=== PATIENT | female | born 1985 | race Caucasian/White ===

== ENCOUNTER → 2016-10-06 | Outpatient (CLI) | payer OTHER ==
[~2016-10-06] MED LIST: PRENTAB26 PO
== END | disposition home or self-care (01) ==
LOC: C.LABBC 18:00
PROVIDERS: ATTEND Internal Medicine Geriatric Medicine
DX: B82.9 Intestinal parasitism, unspecified (principal)

== ENCOUNTER → 2017-03-27 | Outpatient (CLI) | payer OTHER ==
[2017-03-27 15:05] LABS: URINE APPEARANCE CLEAR (CLEAR); URINE BILIRUBIN NEG (NEG); URINE COLOR YELLOW; URINE EPITHELIAL CELL AUTO 20-30 /lpf (0-5); URINE NITRITE NEG (NEG); URINE SPECIFIC GRAVITY 1.015 (1.000-1.030); UROBILINOGEN NEG (NEG)
[2017-03-27 15:07] LABS: MANUAL MICROSCOPIC REQUIRED? NO; REVIEW REQ? NO
== END | disposition home or self-care (01) ==
LOC: C.LABSPEC 14:13
PROVIDERS: ATTEND Obstetrics & Gynecology
DX: O09.219 Supervision of pregnancy with history of pre-term labor, unspecified trimester (principal); Z3A.00 Weeks of gestation of pregnancy not specified

== ENCOUNTER → 2017-04-10 | Outpatient (CLI) | payer OTHER ==
[2017-04-10 08:01] LABS: PATIENT HEIGHT 162.6 cm
[2017-04-10 11:34] LABS: URINE TOTAL PROTEIN 22.6 mg/dl (0-11.9)
[2017-04-10 12:55] LABS: CREATININE 0.53 mg/dl (0.6-1.2); URINE TOTAL PROTEIN CALC 472.3 mg/24 hr (0-149.1)
== END | disposition home or self-care (01) ==
LOC: C.LABBC 07:50
PROVIDERS: ATTEND Obstetrics & Gynecology
DX: I10 Essential (primary) hypertension (principal)

== ENCOUNTER → 2017-05-01 | Outpatient (CLI) | payer OTHER ==
[2017-05-01 08:05] LABS: PATIENT HEIGHT 162.6 cm
--- NOTE | 2017-05-01 08:10 | DIAGNOSTIC IMAGING REPORT ---
(RENAL)RETROPERITON COMP CLINICAL HISTORY: 31 years-old Female presenting with DIABETES HYPERTENSION PROTEINURIA. TECHNIQUE: Real-time grayscale and limited color Doppler ultrasound imaging of the kidneys and bladder was performed. COMPARISON: None. FINDINGS: Right kidney: Normal echogenicity. Right kidney measures 12.2 cm. No hydronephrosis. 7 mm hyperechogenic shadowing focus in the midpole consistent with calculus. Normal perfusion. Left kidney: Normal echogenicity. Left kidney measures 12.6 cm. No hydronephrosis. 3 mm hyperechogenic shadowing focus consistent with calculus at the lower pole. Normal perfusion. Bladder: No bladder wall thickening. Bilateral ureteral jets present. Other: None. IMPRESSION: 1. Bilateral nonobstructing renal calculi. No hydronephrosis. Electronically signed by: Anatoly Lieberman M.D. 05/01/2017 8:08 AM Dictated Date/Time: 05/01/2017 8:07 AM
[2017-05-01 11:31] LABS: BASO % 0.3 %; BASO ABS # 0.02 K/uL (0-0.2); COMPLETE YES; EOS % 1.3 %; HEMATOCRIT 36.6 % (37-47); IG% 0.5 %; LYMPH % 23.2 %; LYMPH ABS # 1.74 K/uL (1.2-3.4); MEAN CELL VOLUME 84.5 fL (80-100); MEAN CORPUSCULAR HEMOGLOBIN 28.4 pg (25-34); MEAN CORPUSCULAR HGB CONC 33.6 g/dl (32-36); MEAN PLATELET VOLUME 9.3 fL (7.4-10.4); MONO % 6.4 %; NEUT % 68.3 %; PLATELET COUNT 308 K/uL (130-400); RED BLOOD COUNT 4.33 M/uL (4.2-5.4)
[2017-05-01 11:47] LABS: URINE APPEARANCE CLEAR (CLEAR); URINE BILIRUBIN NEG (NEG); URINE COLOR YELLOW; URINE EPITHELIAL CELL AUTO 0-5 /lpf (0-5); URINE NITRITE NEG (NEG); URINE SPECIFIC GRAVITY 1.013 (1.000-1.030); UROBILINOGEN NEG (NEG)
[2017-05-01 11:51] LABS: MANUAL MICROSCOPIC REQUIRED? NO; REVIEW REQ? NO
[2017-05-01 11:59] LABS: URINE TOTAL PROTEIN 9.2 mg/dl (0-11.9); URINE TOTAL PROTEIN < 5.0 mg/dl (0-11.9)
[2017-05-01 12:00] LABS: CALCIUM 8.7 mg/dl (8.5-10.1); CREATININE 0.57 mg/dl (0.60-1.20); POTASSIUM 3.7 mmol/L (3.5-5.1); URIC ACID 3.8 mg/dl (2.6-7.2)
[2017-05-01 12:10] LABS: ALB/GLOB RATIO 0.9 (0.9-2); THYROID STIMULATING HORMONE 0.621 uIu/ml (0.300-4.500)
[2017-05-01 12:19] LABS: CREATININE 0.57 mg/dl (0.6-1.2); URINE TOTAL PROTEIN CALC 223.6 mg/24 hr (0-149.1)
== END | disposition home or self-care (01) ==
LOC: C.ULTRBC 07:19
PROVIDERS: ATTEND Internal Medicine Nephrology
DX: E04.2 Nontoxic multinodular goiter (principal); I10 Essential (primary) hypertension; R80.9 Proteinuria, unspecified; E11.9 Type 2 diabetes mellitus without complications

== ENCOUNTER → 2017-08-28 | Outpatient (CLI) | payer OTHER ==
[2017-08-28 08:32] LABS: PATIENT HEIGHT 162.6 cm
[2017-08-28 11:39] LABS: CREATININE 0.43 mg/dl (0.6-1.2)
[2017-08-28 12:03] LABS: CREATININE, URINE 36.5 mg/dl; URINE TOTAL PROTEIN 11.7 mg/dl (0-11.9)
== END | disposition home or self-care (01) ==
LOC: C.LABBC 08:12
PROVIDERS: ATTEND Obstetrics & Gynecology
DX: O10.919 Unspecified pre-existing hypertension complicating pregnancy, unspecified trimester (principal)

== ENCOUNTER → 2017-09-04 | Outpatient (CLI) | payer OTHER ==
[2017-09-04 11:19] LABS: BASO % 0.2 %; BASO ABS # 0.02 K/uL (0-0.2); COMPLETE YES; EOS % 1.6 %; HEMATOCRIT 33.1 % (37-47); IG% 0.8 %; LYMPH % 18.9 %; LYMPH ABS # 1.56 K/uL (1.2-3.4); MEAN CELL VOLUME 86.4 fL (80-100); MEAN CORPUSCULAR HEMOGLOBIN 28.2 pg (25-34); MEAN CORPUSCULAR HGB CONC 32.6 g/dl (32-36); MEAN PLATELET VOLUME 9.3 fL (7.4-10.4); MONO % 4.7 %; NEUT % 73.8 %; PLATELET COUNT 282 K/uL (130-400); RED BLOOD COUNT 3.83 M/uL (4.2-5.4); WHITE BLOOD COUNT 8.26 K/uL (4.8-10.8)
[2017-09-04 11:43] LABS: ALT/SGPT 30 U/L (12-78); AST/SGOT 17 U/L (15-37); CREATININE 0.47 mg/dl (0.60-1.20)
[2017-09-04 11:47] LABS: URIC ACID 3.9 mg/dl (2.6-7.2)
== END | disposition home or self-care (01) ==
LOC: C.LABBC 08:08
PROVIDERS: ATTEND Obstetrics & Gynecology
DX: O10.919 Unspecified pre-existing hypertension complicating pregnancy, unspecified trimester (principal)

== ENCOUNTER → 2017-09-11 | Outpatient (CLI) | payer OTHER ==
[2017-09-11 11:04] LABS: HEMATOCRIT 32.6 % (37-47); MEAN CELL VOLUME 86.5 fL (80-100); MEAN CORPUSCULAR HEMOGLOBIN 28.6 pg (25-34); MEAN CORPUSCULAR HGB CONC 33.1 g/dl (32-36); MEAN PLATELET VOLUME 9.5 fL (7.4-10.4); PLATELET COUNT 277 K/uL (130-400); RED BLOOD COUNT 3.77 M/uL (4.2-5.4); WHITE BLOOD COUNT 8.09 K/uL (4.8-10.8)
[2017-09-11 11:11] LABS: ALKALINE PHOSPHATASE 71 U/L (45-117); ALT/SGPT 23 U/L (12-78); AST/SGOT 16 U/L (15-37)
== END | disposition home or self-care (01) ==
LOC: C.LABBC 07:52
PROVIDERS: ATTEND Obstetrics & Gynecology
DX: O10.919 Unspecified pre-existing hypertension complicating pregnancy, unspecified trimester (principal)

== ENCOUNTER → 2017-09-18 | Outpatient (CLI) | payer OTHER ==
[2017-09-18 10:54] LABS: BASO % 0.1 %; BASO ABS # 0.01 K/uL (0-0.2); COMPLETE YES; EOS % 1.9 %; HEMATOCRIT 30.8 % (37-47); IG% 1.1 %; LYMPH % 21.8 %; LYMPH ABS # 1.86 K/uL (1.2-3.4); MEAN CELL VOLUME 85.6 fL (80-100); MEAN CORPUSCULAR HEMOGLOBIN 29.2 pg (25-34); MEAN CORPUSCULAR HGB CONC 34.1 g/dl (32-36); MEAN PLATELET VOLUME 9.4 fL (7.4-10.4); MONO % 8.1 %; PLATELET COUNT 250 K/uL (130-400); WHITE BLOOD COUNT 8.53 K/uL (4.8-10.8)
[2017-09-18 11:15] LABS: ALT/SGPT 24 U/L (12-78); AST/SGOT 17 U/L (15-37); BLOOD UREA NITROGEN 5 mg/dl (7-18); BUN/CREATININE RATIO 12.6 (10-20); CALCIUM 8.1 mg/dl (8.5-10.1); CARBON DIOXIDE 27 mmol/L (21-32); CHLORIDE 106 mmol/L (98-107); CREATININE 0.43 mg/dl (0.60-1.20); GLUCOSE 78 mg/dl (70-99); SODIUM 137 mmol/L (136-145)
[2017-09-18 11:18] LABS: ALB/GLOB RATIO 0.7 (0.9-2); ALKALINE PHOSPHATASE 75 U/L (45-117)
== END | disposition home or self-care (01) ==
LOC: C.LAB1850 08:01
PROVIDERS: ATTEND Obstetrics & Gynecology
DX: O10.919 Unspecified pre-existing hypertension complicating pregnancy, unspecified trimester (principal); Z3A.00 Weeks of gestation of pregnancy not specified

== ENCOUNTER → 2017-09-26 | Outpatient (CLI) | payer OTHER ==
[2017-09-26 09:55] LABS: HEMATOCRIT 31.3 % (37-47); MEAN CELL VOLUME 85.5 fL (80-100); MEAN CORPUSCULAR HEMOGLOBIN 29.2 pg (25-34); MEAN CORPUSCULAR HGB CONC 34.2 g/dl (32-36); RED BLOOD COUNT 3.66 M/uL (4.2-5.4); WHITE BLOOD COUNT 7.31 K/uL (4.8-10.8)
[2017-09-26 09:56] LABS: MEAN PLATELET VOLUME 9.4 fL (7.4-10.4); PLATELET COUNT 254 K/uL (130-400)
[2017-09-26 10:19] LABS: ALT/SGPT 37 U/L (12-78); AST/SGOT 25 U/L (15-37); BLOOD UREA NITROGEN 5 mg/dl (7-18); BUN/CREATININE RATIO 12.9 (10-20); CALCIUM 8.2 mg/dl (8.5-10.1); CARBON DIOXIDE 25 mmol/L (21-32); CHLORIDE 107 mmol/L (98-107); CREATININE 0.41 mg/dl (0.60-1.20); GLUCOSE 75 mg/dl (70-99); SODIUM 138 mmol/L (136-145)
[2017-09-26 10:22] LABS: ALB/GLOB RATIO 0.7 (0.9-2); ALKALINE PHOSPHATASE 93 U/L (45-117)
== END | disposition home or self-care (01) ==
LOC: C.LAB1850 08:09
PROVIDERS: ATTEND Obstetrics & Gynecology
DX: O10.919 Unspecified pre-existing hypertension complicating pregnancy, unspecified trimester (principal); Z3A.00 Weeks of gestation of pregnancy not specified

== ENCOUNTER → 2017-10-03 | Outpatient (CLI) | payer OTHER ==
[2017-10-03 09:32] LABS: HEMATOCRIT 32.5 % (37-47); HEMOGLOBIN 11.1 g/dL (12.0-16.0); MEAN CELL VOLUME 85.3 fL (80-100); MEAN CORPUSCULAR HEMOGLOBIN 29.1 pg (25-34); MEAN CORPUSCULAR HGB CONC 34.2 g/dl (32-36); MEAN PLATELET VOLUME 9.5 fL (7.4-10.4); PLATELET COUNT 260 K/uL (130-400); RED CELL DISTRIBUTION WIDTH CV 15.1 % (11.5-14.5); RED CELL DISTRIBUTION WIDTH SD 46.7 fL (36.4-46.3); WHITE BLOOD COUNT 8.69 K/uL (4.8-10.8)
[2017-10-03 10:07] LABS: ALBUMIN 2.6 gm/dl (3.4-5.0); ALKALINE PHOSPHATASE 106 U/L (45-117); ALT/SGPT 28 U/L (12-78); AST/SGOT 20 U/L (15-37); TOTAL PROTEIN 6.2 gm/dl (6.4-8.2)
== END | disposition home or self-care (01) ==
LOC: C.LAB1850 08:49
PROVIDERS: ATTEND Obstetrics & Gynecology
DX: O10.919 Unspecified pre-existing hypertension complicating pregnancy, unspecified trimester (principal)

== ENCOUNTER → 2017-10-09 | Outpatient (CLI) | payer OTHER ==
[2017-10-09 11:03] LABS: BASO % 0.2 %; BASO ABS # 0.02 K/uL (0-0.2); EOS % 1.4 %; EOS ABS # 0.12 K/uL (0-0.5); HEMATOCRIT 32.3 % (37-47); HEMOGLOBIN 10.8 g/dL (12.0-16.0); IG# 0.05 K/uL (0.00-0.02); LYMPH % 21.2 %; LYMPH ABS # 1.82 K/uL (1.2-3.4); MEAN CELL VOLUME 85.9 fL (80-100); MEAN CORPUSCULAR HEMOGLOBIN 28.7 pg (25-34); MEAN CORPUSCULAR HGB CONC 33.4 g/dl (32-36); MEAN PLATELET VOLUME 9.6 fL (7.4-10.4); MONO % 7.9 %; MONO ABS # 0.68 K/uL (0.11-0.59); NEUT % 68.7 %; NEUT ABS # 5.91 K/uL (1.4-6.5); PLATELET COUNT 273 K/uL (130-400); RED CELL DISTRIBUTION WIDTH SD 46.8 fL (36.4-46.3)
[2017-10-09 11:25] LABS: ALBUMIN 2.5 gm/dl (3.4-5.0); ALKALINE PHOSPHATASE 107 U/L (45-117); ALT/SGPT 22 U/L (12-78); AST/SGOT 18 U/L (15-37)
== END | disposition home or self-care (01) ==
LOC: C.LABBC 08:22
PROVIDERS: ATTEND Obstetrics & Gynecology
DX: O10.919 Unspecified pre-existing hypertension complicating pregnancy, unspecified trimester (principal)

== ENCOUNTER → 2017-10-11 | Outpatient (CLI) | payer OTHER | END | disposition home or self-care (01) | LOC: C.LABSPEC 11:08 | PROVIDERS: ATTEND Obstetrics & Gynecology | DX: O24.410 Gestational diabetes mellitus in pregnancy, diet controlled (principal); Z3A.00 Weeks of gestation of pregnancy not specified ==

== ENCOUNTER → 2017-10-12 | Outpatient (CLI) | payer OTHER ==
[2017-10-12 16:57] LABS: BASO % 0.2 %; BASO ABS # 0.02 K/uL (0-0.2); EOS % 0.8 %; EOS ABS # 0.07 K/uL (0-0.5); HEMATOCRIT 33.1 % (37-47); HEMOGLOBIN 11.2 g/dL (12.0-16.0); IG# 0.06 K/uL (0.00-0.02); LYMPH % 20.9 %; LYMPH ABS # 1.76 K/uL (1.2-3.4); MEAN CELL VOLUME 86.2 fL (80-100); MEAN CORPUSCULAR HEMOGLOBIN 29.2 pg (25-34); MEAN CORPUSCULAR HGB CONC 33.8 g/dl (32-36); MEAN PLATELET VOLUME 9.7 fL (7.4-10.4); MONO % 8.3 %; NEUT % 69.1 %; NEUT ABS # 5.81 K/uL (1.4-6.5); PLATELET COUNT 286 K/uL (130-400); RED CELL DISTRIBUTION WIDTH CV 15.1 % (11.5-14.5); RED CELL DISTRIBUTION WIDTH SD 47.4 fL (36.4-46.3); WHITE BLOOD COUNT 8.42 K/uL (4.8-10.8)
[2017-10-12 17:23] LABS: ALT/SGPT 21 U/L (12-78); AST/SGOT 15 U/L (15-37); CREATININE 0.42 mg/dl (0.60-1.20); URIC ACID 4.2 mg/dl (2.6-7.2)
== END ==
LOC: C.LABBC 14:24
PROVIDERS: ATTEND Obstetrics & Gynecology
DX: O14.00 Mild to moderate pre-eclampsia, unspecified trimester (principal); O10.919 Unspecified pre-existing hypertension complicating pregnancy, unspecified trimester; Z3A.00 Weeks of gestation of pregnancy not specified

== ENCOUNTER 2017-10-13 08:28 | Inpatient (IN) | payer OTHER ==
[~2017-10-13] VITALS: Ht 162.6 cm; Wt 88.2 kg
[2017-10-13] MEDS ORDERED: LACTATED RINGER'S 1000ML 1,000 ML IV SCH ×2 (09:36→09:41)
[2017-10-13] MEDS ORDERED: LACTATED RINGER'S 1000ML 1,000 ML IV PRN ×2 (09:36→09:41)
[2017-10-13] MEDS ORDERED: LACTATED RINGER'S 1000ML 500 ML IV PRN (09:41)
[2017-10-13] MEDS ORDERED: OXYTOCIN 30 UNITS/500ML NSS IV PRN ×2 (09:45→19:00)
[2017-10-13] MEDS ORDERED: PENICILLIN G POTASSIUM IV 6 MU in DEXTROSE 5% 250ML 250 ML IV ONE (09:45)
[2017-10-13 10:28] LABS: HEMATOCRIT 33.3 % (37-47); HEMOGLOBIN 11.4 g/dL (12.0-16.0); MEAN CELL VOLUME 84.9 fL (80-100); MEAN CORPUSCULAR HEMOGLOBIN 29.1 pg (25-34); MEAN CORPUSCULAR HGB CONC 34.2 g/dl (32-36); MEAN PLATELET VOLUME 9.6 fL (7.4-10.4); PLATELET COUNT 258 K/uL (130-400); WHITE BLOOD COUNT 8.96 K/uL (4.8-10.8)
[2017-10-13 10:47] LABS: AST/SGOT 17 U/L (15-37); CREATININE 0.44 mg/dl (0.60-1.20)
[2017-10-13 11:37] VITALS: Ht 162.6 cm; Wt 88.2 kg
[2017-10-13] MEDS ORDERED: PENICILLIN G POTASSIUM IV 3 MU in DEXTROSE 5% 100ML 100 ML IV PRN (13:45)
[2017-10-13] MEDS ORDERED: NIFEdipine 10 MG CAP PO STA ×2 (14:25→19:12)
[2017-10-13] MEDS ORDERED: DIPHTHERIA/TETANUS/PERTUSSIS 0.5 ML SYR/VIAL IM. ONE (19:00)
[2017-10-13] MEDS ORDERED: SUPERCREAM 0.870 % 15GM JAR EXT PRN (19:00)
[2017-10-13] MEDS ORDERED: LANOLIN OINT EXT PRN (19:00)
[2017-10-13] MEDS ORDERED: OXYCODONE/ACETAMINOPHEN 5-325 TAB PO PRN (19:00)
[2017-10-13] MEDS ORDERED: HYDROCORTISONE ACETATE 25 MG SUPP PR PRN (19:00)
[2017-10-13] MEDS ORDERED: BENZOCAINE 20% AER SPR 82.5 GM CAN EXT PRN (19:00)
[2017-10-13] MEDS ORDERED: ACETAMINOPHEN/CODEINE 300/30MG TAB PO PRN ×2 (19:00)
[2017-10-13] MEDS ORDERED: ACETAMINOPHEN 325 MG TAB PO PRN (19:00)
[2017-10-13 21:20] VITALS: BP 151/93; TEMP 36.7
[2017-10-13] MEDS: IBUPROFEN 600 MG TAB PO PRN (21:55)
[2017-10-13] MEDS: DOCUSATE SODIUM 100 MG CAP PO SCH (21:56)
[2017-10-13 23:40] VITALS: BP 145/89; PULSE 101; TEMP 36.7; O2SAT 98
[2017-10-14] VITALS (8 sets, daily range): BP systolic 147–156; BP diastolic 91–105; PULSE 83–94; TEMP 36.1–36.9; O2SAT 98–100
[2017-10-14] MEDS: IBUPROFEN 600 MG TAB PO PRN ×4 (03:04→20:51)
--- NOTE | 2017-10-14 06:07 | OB/GYN Progress Note ---
CHIEF PROCUREMENT OFFICER Progress Note Date of Service Oct 14, 2017. Subjective conversation w/ patient, physical exam, chart review, lab review, review of studies Ambulation: ambulating normally Voiding: no voiding problems Passing Gas: Yes Diet Tolerance: Regular Diet Lochia: Moderate Feeding Type: Breast Feeding Pain: cramping with Review of Systems Constitutional: No fever Respiratory: No cough, No shortness of breath Cardiac: No chest pain Abdomen: No pain, No nausea, No vomiting Female : No dysuria Objective Vital Signs Date Time Temp Pulse Resp B/P (MAP) Pulse Ox O2 Delivery O2 Flow Rate FiO2 10/14/17 03:50 147/91 (109) 10/14/17 03:35 36.6 89 18 150/98 (115) 99 Room Air 10/13/17 23:40 Room Air 10/13/17 23:40 36.7 101 18 145/89 (107) 98 Room Air 10/13/17 21:20 36.7 20 151/93 (112) Room Air 10/13/17 21:20 Room Air Physical Exam General Appearance: WELL-APPEARING, WD/WN, NO APPARENT DISTRESS Respiratory/Chest: lungs clear Cardiovascular: regular rate, rhythm Abdomen: non tender, soft Fundus: Firm Extremities: non-tender, no pedal edema Laboratory Results Last 24 Hours Test 10/13/17 10:12 10/14/17 04:44 White Blood Count 8.96 K/uL Red Blood Count 3.92 M/uL Hemoglobin 11.4 g/dL Hematocrit 33.3 % Mean Corpuscular Volume 84.9 fL Mean Corpuscular Hemoglobin 29.1 pg Mean Corpuscular Hemoglobin Concent 34.2 g/dl RDW Standard Deviation 46.0 fL RDW Coefficient of Variation 15.0 % Platelet Count 258 K/uL Mean Platelet Volume 9.6 fL Creatinine 0.44 mg/dl Estimated GFR () > 150.0 Estimated GFR (Non- 132.6 Aspartate Amino Transf (AST/SGOT) 17 U/L Assessment and Plan Post- Day Number: 1 Continue Routine Care: 31 yo female , now 2 vaginal delivery @37 wks, PPD1. GBS status unknown/A+/ RI. Pt treated with IV Penicillin. Reviewed vitals; BP were elevated overnight. was complicated by chronic HTN and GDM. Hgb was 11.4 at admission, pending today. Plan; 1. Recovery from vaginal delivery - Cont. pp care; ambulate, monitor lochia, support breast feeding, control pain 2. Elevated BP- Will discuss treatment options on attending rounds Resident Physician Supervision Note: I interviewed and examined the patient. Discussed with Dr. Galvan and agree with findings and plan as documented in the note. Any exceptions or clarifications are listed here: [None] Documented By: True Ley
--- NOTE | 2017-10-14 07:07 | Discharge Instructions ---
Discharge Instructions Date of Service Oct 14, 2017. Admission Reason for Admission: Chroinic Hypertension In Obstetric Context Discharge Discharge Diagnosis / Problem: vaginal delivery, chronic HTN Discharge Goals Goal(s): Routine recovery after delivery Medications Continue Dispensed Medications: supercream, dermaplast, tucks, lansinoh Activity Recommendations Activity Limitations: per Instructions/Follow-up section . Instructions / Follow-Up Instructions / Follow-Up ACTIVITY RECOMMENDATIONS: * Gradual return to full activity over the next 2-3 weeks. * No lifting - nothing heavier than baby over the next 2-3 weeks. * Do not engage in vigorous exercise, sexual activity or sports until cleared by your physician. * Do not drive or operate any motorized equipment until cleared by your physician. * You may shower/bathe daily. MEDICATIONS: For discomfort or pain, you may use Acetaminophen (Tylenol), Ibuprofen (Advil), or Naproxen (Aleve) following the package directions. For constipation you may use Colace following the package directions. BREAST CARE: If you are not breast feeding: * Wear a supportive bra 24 hours a day for one to two weeks. * Avoid stimulating your breasts and nipples as much as possible during the first few weeks after delivery. * When taking a shower, have the warm water hit your back, not breasts. * When your breasts feel full, apply ice packs. Usually three to four times a day helps ease the discomfort. * Take a mild pain medication (Tylenol / Motrin) when you are uncomfortable. If breast feeding: * Use breast milk to lubricate nipples. Lansinoh cream may be used for sore nipples. You do not need to remove cream prior to breast feeding. If using a different brand of cream, check the label for directions regarding removal of cream prior to nursing. * Wear a supportive bra. * If having problems with breasts or breast feeding, call a economic consultant or your health care provider. EPISIOTOMY CARE: After delivery, if you have an episiotomy (stitches), the following steps will ease discomfort and aid healing. * For the first 24 hours after delivery, place ice packs next to your episiotomy to help reduce swelling. * After the first 24 hour-period, sitz baths, either portable or in the tub, are suggested. A shower with a shower arm sprayed over the episiotomy may be comforting. * Kimberly care should be done after each voiding and bowel movement. Squirt warm water from a plastic bottle over the perineum (region of the body between the anus and urinary opening) and pat dry. * Use Dermoplast to ease discomfort. Shake container. [place] directly over the episiotomy. Place a Tucks on a clean sanitary pad next to your episiotomy. SPECIAL CARE INSTRUCTIONS: When you are discharged from the hospital, it is important for you to follow the instructions listed below: * During the first week at home, you should be able to care for yourself and your baby. In addition, the usual light household activities are encouraged. * Limit your activities to the way you feel. Do not try to clean the house or move furniture. Be sensible. * If you actively engage in sports and have done so up until the time of your delivery, you may resume these activities as soon as you feel able. This may take up to one month or even longer. Use good judgment. * Continue to take your vitamins for at least six weeks after the of your baby. * Your diet need not be limited unless you were on a special diet before your delivery. Breast-feeding mothers need around 2500 calories per day and at least 64-80 ounces of fluid per day (8 to 10 glasses). * You should eat foods from the four major food groups. Crash diets or fad diets are to be avoided. Eating lean meats, fresh fruits and vegetables, low-fat dairy products, high fiber foods and a regular exercise program, will help you get back to your pre- weight without putting your health at risk. * Constipation is sometimes a problem after delivery. Take a mild laxative as needed. If breast feeding, Milk of Magnesia is acceptable to use. You may use a suppository or Fleets enema if no episiotomy. * A daily shower or tub bath is suggested. Be sure to thoroughly and gently dry the perineum. * A bloody vaginal discharge will usually continue until around four weeks post . A small amount of bleeding may continue for as long as six weeks. Vaginal discharge changes from the bright red bleeding after delivery to pink then brownish and finally yellowish-pink before becoming white and disappearing. * Bleeding may increase with activity. Your first period may come in 4-8 weeks. If you are breast feeding, your period may be delayed even longer. * Devol (sex) can begin whenever both you and your partner feel comfortable and do not have any form of genital infection. It is recommended that you wait at least six weeks for internal and external healing to occur. If you have questions, please talk to your health care practitioner. A condom should be used to prevent infection and . * Foreplay, gentle intercourse and lubrication is very important the first several times to prevent pain. A water-based lubricant such as K-Y jelly or Astroglide may be used. * If you have RH negative blood and your baby is RH positive, you will receive RHOGAM by injection prior to discharge. The nurse will give you a card to keep with you that has the date and place that you received RHOGAM after delivery. * During your care, you had a Rubella screen done to check for the presence of rubella antibodies in your blood. If your test was negative, you will receive a Rubella vaccine prior to discharge. This vaccine may cause a fever, soreness at the injection site and flu-like symptoms. If these symptoms persist, notify your health care practitioner. is not advised for one month after a Rubella vaccine. * Verbalizes understanding of car seat law as reviewed with patient nursing. * Car Seat hand-out given and reviewed with patient by nursing. * Shaken baby information reviewed with patient by nursing. Call you doctor if: * Heavy bleeding (saturating several pads an hour) or passing clots the size of your fist. * A fever >101 degrees F (38.3 degrees C) on two occasions four hours apart and /or chills. * Unusual pain in the pelvic or vaginal areas. * "Baby Blues" lasting longer than two weeks. If you have any questions or concerns, call your health care practitioner at . FOLLOW UP VISIT: * Please call the office at to schedule a 6 week examination. It is important you keep this appointment. It is important for you to make arrangements for either yearly or twice yearly check-ups thereafter. Current Hospital Diet Patient's current hospital diet: Regular OB Diet Discharge Diet Recommended Diet: Regular OB Diet Pending Studies Studies pending at discharge: no Medical Emergencies . Who to Call and When: Medical Emergencies: If at any time you feel your situation is an emergency, please call 911 immediately. . Non-Emergent Contact Non-Emergency issues call your: Java Developer Architect . . "Provider Documentation" section prepared by Guero Galvan. . VTE Core Measure Inpt VTE Proph given/why not?: Treatment not indicated
[2017-10-14] MEDS: DOCUSATE SODIUM 100 MG CAP PO SCH ×2 (08:49→19:49)
[2017-10-14] MEDS: PRENATAL VITAMIN TAB PO SCH (08:49)
[2017-10-14 10:36] LABS: HEMATOCRIT 31.7 % (37-47); HEMOGLOBIN 11.4 g/dL (12.0-16.0)
[2017-10-14] MEDS ORDERED: BISACODYL 5 MG TABEC PO SCH (20:00)
[2017-10-14] MEDS ORDERED: LABETALOL HCL 100 MG TAB PO ONE (20:30)
[2017-10-15 00:10] VITALS: BP 162/98; PULSE 75; TEMP 36.3
[2017-10-15 06:02] LABS: HEMATOCRIT 31.3 % (37-47); HEMOGLOBIN 10.4 g/dL (12.0-16.0); MEAN CELL VOLUME 85.8 fL (80-100); MEAN CORPUSCULAR HEMOGLOBIN 28.5 pg (25-34); MEAN CORPUSCULAR HGB CONC 33.2 g/dl (32-36); MEAN PLATELET VOLUME 9.4 fL (7.4-10.4); PLATELET COUNT 266 K/uL (130-400); RED CELL DISTRIBUTION WIDTH SD 46.8 fL (36.4-46.3)
[2017-10-15] MEDS: IBUPROFEN 600 MG TAB PO PRN (06:22)
[2017-10-15] MEDS ORDERED: BISACODYL 10 MG SUPP PR PRN (07:00)
[2017-10-15 08:00] VITALS: BP 148/95; PULSE 96; TEMP 36.6; O2SAT 98
[2017-10-15] MEDS ORDERED: LABETALOL HCL 100 MG TAB PO SCH (08:00)
[2017-10-15] MEDS: PRENATAL VITAMIN TAB PO SCH (08:24)
[2017-10-15] MEDS: DOCUSATE SODIUM 100 MG CAP PO SCH (08:24)
--- NOTE | 2017-10-15 08:41 | Progress Note ---
Subjective Oct 15, 2017. Subjective conversation w/ patient, physical exam Ambulation: ambulating normally Voiding: no voiding problems Passing Gas: Yes Diet Tolerance: Regular Diet Lochia: Moderate Feeding Type: Breast Feeding Review of Systems Constitutional: No fever, No chills, No sweats, No weight loss, No weakness, No fatigue, No problem reported Breast: No see HPI, No breast lump, No change in shape, No nipple discharge, No breast pain, No problem reported Abdomen: No pain, No nausea, No vomiting, No diarrhea, No constipation, No GI bleeding, No problem reported Female : No see HPI, No dysuria, No urinary frequency, No hematuria, No incontinence, No abnormal vaginal bleeding, No vaginal discharge, No problem reported Objective Vital Signs Date Time Temp Pulse Resp B/P (MAP) Pulse Ox O2 Delivery O2 Flow Rate FiO2 10/15/17 08:00 36.6 96 17 148/95 (112) 98 Room Air 10/15/17 00:10 36.3 75 18 162/98 (119) 10/15/17 00:10 Room Air 10/14/17 22:10 155/98 (117) 10/14/17 19:45 36.9 90 18 153/97 (115) 100 Room Air 10/14/17 16:30 36.1 85 16 156/98 (117) 99 Room Air 10/14/17 16:30 99 Room Air 10/14/17 12:05 36.6 83 16 149/93 (111) 98 Room Air 10/14/17 09:40 154/99 (117) 10/14/17 08:55 Room Air 10/14/17 08:55 36.9 94 16 153/105 (121) 99 Room Air Physical Exam General Appearance: WELL-APPEARING, NO APPARENT DISTRESS Abdomen: non tender, soft Fundus: Firm, Non-Tender, Relation to Umbilicus (2 below U) Extremities: no calf tenderness Laboratory Results Last 24 Hours Test 10/14/17 10:25 10/15/17 05:42 Hemoglobin 11.4 g/dL 10.4 g/dL Hematocrit 31.7 % 31.3 % White Blood Count 10.90 K/uL Red Blood Count 3.65 M/uL Mean Corpuscular Volume 85.8 fL Mean Corpuscular Hemoglobin 28.5 pg Mean Corpuscular Hemoglobin Concent 33.2 g/dl RDW Standard Deviation 46.8 fL RDW Coefficient of Variation 15.0 % Platelet Count 266 K/uL Mean Platelet Volume 9.4 fL Assessment and Plan Post- Day#: 2 Continue Routine Care: BP still elevated. started on labetalol 100mg bid last night will discharge to home on labetalol follow up in the office for BP check in 1 week.
[2017-10-15 11:56] VITALS: BP 168/100; PULSE 82; TEMP 36.5; O2SAT 100
[2017-10-15 13:00] VITALS: BP 153/96; PULSE 78
[2017-10-15 14:30] VITALS: BP_DIAS 96; PULSE 78; TEMP 36.5
--- NOTE | 2017-10-16 07:59 | DELIVERY SUMMARY ---
DATE OF OPERATION: 10/13/2017 Anisha was induced for preeclampsia with unstable blood pressures, specifically she is 36 weeks and 6 days, and her blood pressures were unstable as high as 170/110. Her protein was 900 mg from the office. We reviewed that usually mild preeclampsia is induced at 37 weeks, however, this is 36 weeks and 6 days and with the unstable blood pressures; I think there is far more risk in waiting at this stage. Regardless, a plan of management was made by Dr. Tinsley and induction was started by her, specifically Gramajo catheter was placed in her cervix and Pitocin was started. Later in the day, heart rate tracing was category 1 and the Gramajo bulb came out, at that point I took over care of patient and ARM was performed. She was 3 to 4 cm. Fluid was clear. She then progressed to a more painful labor pattern, again category 1 tracing. The patient then progressed to fully dilate and pushed over only a few contractions. Clear fluid, no nuchal cord, live vigorous infant. Mouth and nares suctioned at delivery of the head and then gentle traction was used, no excessive force to delivery the baby. Baby was vigorous. Cord clamped and cut. Cord gases obtained. Cord blood obtained. Placenta removed with gentle traction. First degree tear repaired with 3-0 Vicryl. Estimated blood loss 300 mL. Sponge and instrument counts were correct. I attest to the content of the Intraoperative Record and any orders documented therein. Any exception s are noted below.
== END 2017-10-15 14:30 | disposition home or self-care (01) | DRG 775 ==
LOC: C.LD 08:28 → C.OBG 21:45
PROVIDERS: ADMIT Obstetrics & Gynecology; ATTEND Obstetrics & Gynecology
PROC: 3E033VJ Introduction of Other Hormone into Peripheral Vein, Percutaneous Approach (ICD-10-PCS; principal; 2017-10-13)
PROC: 10E0XZZ Delivery of Products of Conception, External Approach (ICD-10-PCS; principal; 2017-10-13)
PROC: 0HQ9XZZ Repair Perineum Skin, External Approach (ICD-10-PCS; principal; 2017-10-13)
DX: O14.94 Unspecified pre-eclampsia, complicating childbirth (principal); Z3A.36 36 weeks gestation of pregnancy; O70.0 First degree perineal laceration during delivery; Z37.0 Single live birth

== ENCOUNTER → 2018-04-26 | Outpatient (CLI) | payer OTHER ==
[2018-04-26 11:00] LABS: ALBUMIN 3.8 gm/dl (3.4-5.0); ALKALINE PHOSPHATASE 53 U/L (45-117); ALT/SGPT 21 U/L (12-78); AST/SGOT 9 U/L (15-37); BLOOD UREA NITROGEN 16 mg/dl (7-18); CALCIUM 8.2 mg/dl (8.5-10.1); CARBON DIOXIDE 25 mmol/L (21-32); CREATININE 0.69 mg/dl (0.60-1.20); GLUCOSE 89 mg/dl (70-99); POTASSIUM 4.1 mmol/L (3.5-5.1); SODIUM 138 mmol/L (136-145); TOTAL PROTEIN 7.2 gm/dl (6.4-8.2)
== END | disposition home or self-care (01) ==
LOC: C.LABBC 07:49
PROVIDERS: ATTEND Family Medicine Adult Medicine
DX: I10 Essential (primary) hypertension (principal); E04.2 Nontoxic multinodular goiter

== ENCOUNTER 2019-11-27 07:34 | Inpatient (IN) ==
[2019-11-27] MEDS ORDERED: OXYTOCIN 30 UNITS/500 ML BAG IV PRN ×3 (07:53→13:47)
[2019-11-27] MEDS ORDERED: LACTATED RINGER'S 1,000 ML IV PRN (07:53)
[2019-11-27] MEDS: LABETALOL HCL 200 MG TAB PO SCH ×3 (08:27→20:05)
[2019-11-27 08:28] LABS: Hematocrit (blood only) 36.2 % (37-47); Mean Corpuscular Volume 84.6 fL (80-100); Mean Platelet Volume 9.3 fL (7.4-10.4); Platelet Count 253 K/uL (130-400); RDW Coefficient of Variation 15.3 % (11.5-14.5); Red Blood Count 4.28 M/uL (4.2-5.4); White Blood Count 6.91 K/uL (4.8-10.8)
[2019-11-27 08:29] LABS: Mean Corpuscular Hgb Conc 33.1 g/dL (32-36)
--- NOTE | 2019-11-27 08:34 | History & Physical Report ---
Date of Service November 27, 2019 Assessment & Plan (1) Encounter for induction of labor: Anisha Harris is a 34y/o , presenting for induction of labor at 38w0d; this has been complicated by chronic HTN, gestational DM, and advanced maternal age. Induction of Labor: - cervical exam on admission /-2 and soft - FHT 150 with moderate variability, no decelerations - started on Pitocin will increase by 2 every 30 minutes as tolerated CHTN: - continue Labetalol 200mg TID History of Present Illness Chief Complaint: Induction of Labor Primary Care Provider: Anatoly Rivas MD Anisha Harris is a 34 y/o female ; at 38w0d with dating Ultrasound in first trimester; for induction of labor; complications with chronic HTN, gestational DM, and advanced maternal age this . Frequently attended OB appointments; currently not feeling contractions; good movement; no fluid loss; no vaginal blood loss Labs: (11/27/2019) Blood type: A+ Antibody screen: negative H.0 Hct: 36.2 WBC: 6.91 Plt: 253 Rubella: negative VDRL/RPR: negative Gonorrhea: negative Chlamydia: HIV: negative HbSAg: negative GBS negative Allergies Allergy/AdvReac Type Severity Reaction Status Date / Time No Known Allergies Allergy Verified 11/26/19 07:34 Home Medications Home Medications Medication Instructions Recorded Confirmed Type prenat.vits,mery,fkj-kzns-krolm 1 tab PO DAILY 05/01/19 11/26/19 History acetone (urine) test #50 ea 06/07/19 11/26/19 Rx blood-glucose meter #1 ea 06/07/19 11/26/19 Rx aspirin 81 mg tablet,delayed 81 mg PO DAILY 07/29/19 11/26/19 History release breast pump #1 ea 11/05/19 11/26/19 Rx labetalol 200 mg tablet 200 mg PO TID #270 tab 11/13/19 11/26/19 Rx blood sugar diagnostic #100 ea 11/25/19 11/26/19 Rx lancets #102 ea 11/25/19 11/26/19 Rx Past Med/Surg History Medical History (Updated 11/27/19 @ 08:46 by Ronaldo Angulo MD) Ascaris lumbricoides Coccyx pain (Acute) Contact dermatitis due to poison urbano (Inactive) History of delivery, currently Hypertension Melanoma in situ (Acute) Nontoxic multinodular goiter (Acute) Surgical History (Updated 09/26/19 @ 11:16 by Hermelindo Pablo Jr, MD, FACOG) S/P fine needle aspiration S/P wisdom tooth extraction Social History Preferred Language: Thai Communication Ability: Effective Visual Impairment: Partially Limited Hearing Ability: Normal Beliefs That Will Affect Care: None marital status: Current Living Situation: Spouse Current Living Situation Comment: [address] current occupational status: employed Other Information That Helps Us Care for You: No Feels Safe at Home: Yes Safety Concerns: Feels Safe At This Time Smoking Status: Never smoker Hx Alcohol Use: Yes Alcohol Intake Frequency: Weekly Hx Substance Use: No Childhood Exposure to Second-Hand Smoke: No Dental Care, Regularly: Yes Physical Activity Frequency: 3-4 Times per Week Physical Activity Frequency Comment: Walking Seatbelt Use: always Sunscreen Use: Yes Review of Systems Review of Systems: Constitutional: denies fever; chills; sweats; headache Respiratory: denies shortness of breath, difficulty breathing Cardiac: denies chest pain; palpitations; chest pressure Breast: denies breast pain : denies dysuria Physical Exam Physical Exam: General: alert; oriented; no acute distress Cardiac: RRR; no m/g/r Respiratory: CTAB a/p; no wheezes/rales/rhonchi; no increased work of breathing; symmetrical chest rise; no respiratory distress Abdomen: soft; NT/ND; bowel sounds positive Lower extrem: no lower extremity edema or swelling; no deep calf pain; Arias's sign negative b/l Genitourinary: Manual OB Exam: + cervical dilation (as performed by Dr. Ramirez) 3 cm, + cervical effacement (as performed by Dr. Ramirez) 50% and + station (as performed by Dr. Ramirez) -2 OB Exam Monitor Tracing: + external FHT monitor used, + external uterine monitor used, + category I and + normal FHT variability Results & Data Vital Signs (Past 12 Hours) Vital Signs Temp Pulse Resp BP 11/27/19 08:26 86 143/95 H 11/27/19 07:56 89 149/94 H 11/27/19 07:40 36.7 C 20 11/27/19 07:39 97 H 175/100 H Laboratory Results 11/27/19 Range/Units 08:11 WBC 6.91 (4.8-10.8) K/uL RBC 4.28 (4.2-5.4) M/uL Hgb 12.0 (12.0-16.0) g/dL Hct 36.2 L (37-47) % MCV 84.6 (80-100) fL MCH 28.0 (25-34) pg MCHC 33.1 (32-36) g/dL RDW Std Deviation 47.0 H (36.4-46.3) fL RDW Coeff of Maria Luisa 15.3 H (11.5-14.5) % Plt Count 253 (130-400) K/uL MPV 9.3 (7.4-10.4) fL Medications Administered Current Inpatient Medications Lactated Ringer's (Lr) 1,000 mls @ 125 mls/hr IV .Q8H PRN; Protocol PRN Reason: L&D Protocol Stop: 11/29/19 07:52 Oxytocin (Pitocin) 30 units in 500 mls @ 333.333 mls/hr IV .Q1H30M PRN; Protocol PRN Reason: Bleeding Control Stop: 12/27/19 07:52 Oxytocin (Pitocin) 30 units in 500 mls @ 2 mls/hr IV .Q24H PRN; Protocol PRN Reason: Labor Induction/Augmentation Stop: 11/29/19 07:52 Labetalol HCl (Normodyne) 200 mg PO TID [facility] Stop: 12/27/19 08:59 Last Admin: 11/27/19 08:27 Dose: 200 mg Documented by: Supervising Physician Co-Signing Physician Notes Resident Physician Supervision Note: I interviewed and examined the patient. Discussed with Dr. Angulo and agree with findings and plan as documented in the note. 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 She is rubella immune. RH pos. GBS neg. Will start pitocin and plan AROM. She will cont labetalol tid. She notes spouse was in Er but tested neg for flu A and B and is likely going home to rest. She was previously offered tamiflu but declines. FHTs categ 1. Will plan to check bsg now and then q2hr in active labor. Documented By: Mimi Lopez MD, FACOG Resident Activity Tracking Resident Involvement: Resident Care Provided Care Provided: OB Delivery
[2019-11-27] MEDS ORDERED: OSELTAMIVIR PHOSPHATE 75 MG CAP PO SCH (09:00)
--- NOTE | 2019-11-27 13:01 | Labor Progress Brief Note ---
Date of Service November 27, 2019 Subjective Reason For Note: Routine Evaluation pt breathing with ctx. pitocin infusing. arom for clear fluid was performed around 1030am. Assessment & Plan (1) Chronic hypertension affecting : (2) Diet controlled gestational diabetes mellitus (GDM), antepartum: (3) Elderly multigravida: (4) History of labor, current : (5) Encounter for induction of labor: good cx change with pitocin/arom. variables intermittent, will watch fhts. plan bsg now and q2hr until delivered. Physical Exam Constitutional: WD/WN, vitals as above Neurologic: grossly normal Psychiatric: A+Ox3, euthymic affect Genitourinary: Manual OB Exam: + cervical dilation (7), + cervical effacement 90%, + station + 1 and + amniotic fluid clear OB Exam Monitor Tracing: + external FHT monitor used (145 mod variability, variables), + category II and + normal FHT variability Results & Data Vital Signs (Past 12 Hours) Vital Signs Temp Pulse Resp BP 11/27/19 12:48 85 182/105 H 11/27/19 11:20 98.2 F 11/27/19 11:03 82 168/92 H 11/27/19 10:05 78 142/89 H 11/27/19 09:03 81 141/93 H 11/27/19 08:29 98.1 F 11/27/19 08:26 86 143/95 H 11/27/19 07:56 89 149/94 H 11/27/19 07:40 98.1 F 11/27/19 07:39 97 H 175/100 H Coding Level of Care Code None Diagnoses Chronic hypertension affecting O10.919 Diet controlled gestational diabetes mellitus (GDM), antepartum O24.410 Elderly multigravida O09.529 History of labor, current O09.219 Encounter for induction of labor Z34.90
--- NOTE | 2019-11-27 13:39 | Delivery Summary ---
Vaginal Delivery Summary Date of Service November 27, 2019 The patient dilated to complete and pushed to deliver a viable male Apga rs 8 and 9 via over small perineal laceration. Mouth and nose bulb suctioned at perineum. Shoulders and body delivered with ease. was vigorous and crying at . Cord clamped at 30 seconds of life and to maternal abdomen where the cord was then doubly clamped and cut. Placenta delivered spontaneously and intact, three-vessel cord. Hemostasis achieved with dilute pitocin and uterine massage. Cervix and sulci intact. Laceration reapproximated with single stich of 3-0 vicryl after 1% local lidocaine anesthesia. EBL 300 cc. Mother and baby stable in recovery. [facility] Vaginal Delivery Charge Vaginal Delivery Codes: 33745 global code for the antepartum, delivery, and post-
[2019-11-27] MEDS ORDERED: SUPERCREAM 0.870% 15 GM JAR EXT PRN (13:47)
[2019-11-27] MEDS ORDERED: DIPHTHERIA/TETANUS/PERTUSSIS 0.5 ML SYR/VIAL IM ONE (13:47)
[2019-11-27] MEDS ORDERED: ACETAMINOPHEN 325 MG TAB PO PRN (13:47)
[2019-11-27] MEDS ORDERED: BENZOCAINE 20% AER SPR 82.5 GM CAN EXT PRN (13:47)
[2019-11-27] MEDS ORDERED: HYDROCORTISONE ACETATE 25 MG SUPP PR PRN (13:47)
[2019-11-27] MEDS: IBUPROFEN 600 MG TAB PO PRN ×2 (15:17→20:03)
[2019-11-27] MEDS: DOCUSATE SODIUM 100 MG CAP PO SCH (20:05)
[2019-11-28] MEDS: IBUPROFEN 600 MG TAB PO PRN ×4 (03:05→20:47)
--- NOTE | 2019-11-28 07:01 | Obstetrical Progress Note ---
Date of Service <Ronaldo Angulo MD - Last Filed: 11/28/19 07:39> November 28, 2019 Assessment & Plan <Ronaldo Angulo MD - Last Filed: 11/28/19 07:39> (1) Encounter for induction of labor: PPD#1 - continue routine care - encourage ambulation and oral intake - after discharge will have follow-up in [address] John Chun <Ronaldo Angulo MD - Last Filed: 11/28/19 07:39> Ms. Harris is a 34 y/o female ; PPD #1 following spontaneous vaginal delivery at 38 weeks; doing well this morning; having minimal abdominal cramping/pain; voiding well; tolerating meals overnight; and able to ambulate some; some persistent spotting with intermittent improvement this morning. Review of Systems Constitutional: denies fever; chills; sweats; headache Respiratory: denies shortness of breath, difficulty breathing Cardiac: denies chest pain; palpitations; chest pressure Breast: denies breast pain : denies dysuria Physical Exam <Ronaldo Angulo MD - Last Filed: 11/28/19 07:39> General: alert; oriented; no acute distress Cardiac: RRR; no m/g/r Respiratory: CTAB a/p; no wheezes/rales/rhonchi; no increased work of breathing; symmetrical chest rise; no respiratory distress Abdomen: soft; NT/ND; bowel sounds positive Uterus: uterine fundus firm; palpable 3cm below umbilicus Lower extrem: no lower extremity edema or swelling; no deep calf pain; Arias's sign negative b/l Results & Data <Ronaldo Angulo MD - Last Filed: 11/28/19 07:39> Vital Signs (Past 12 Hours) Vital Signs Temp Pulse Resp BP 11/28/19 03:10 36.6 C 76 18 143/95 H 11/28/19 00:05 36.6 C 76 18 134/84 11/27/19 19:25 36.4 C L 79 18 140/80 Laboratory Results 11/27/19 11/27/19 Range/Units 13:06 08:11 WBC 6.91 (4.8-10.8) K/uL RBC 4.28 (4.2-5.4) M/uL Hgb 12.0 (12.0-16.0) g/dL Hct 36.2 L (37-47) % MCV 84.6 (80-100) fL MCH 28.0 (25-34) pg MCHC 33.1 (32-36) g/dL RDW Std Deviation 47.0 H (36.4-46.3) fL RDW Coeff of Maria Luisa 15.3 H (11.5-14.5) % Plt Count 253 (130-400) K/uL MPV 9.3 (7.4-10.4) fL POC Glucose 78 (70-99) mg/dl Medications Administered Current Inpatient Medications Acetaminophen (Tylenol) 650 mg PO Q6H PRN PRN Reason: Pain/PEDERSON/Fever Stop: 12/27/19 13:46 Benzocaine (Dermoplast Pain Relieving [place]) 1 appln EXT PRN PRN PRN Reason: Perineal Discomfort Stop: 12/27/19 13:46 Last Admin: 11/27/19 15:17 Dose: 1 appln Documented by: Cocaine HCl (Supercream 0.870%) 1 gm EXT BID PRN PRN Reason: Hemorrhoidal Inflammation Stop: 12/11/19 13:46 Docusate Sodium (Colace) 100 mg PO DAILY@08,21 [facility] Stop: 12/27/19 20:59 Last Admin: 11/27/19 20:05 Dose: 100 mg Documented by: Hydrocortisone (Anusol Hc) 25 mg [place] BID PRN PRN Reason: Hemorrhoidal Inflammation Stop: 12/27/19 13:46 Oxytocin (Pitocin) 30 units in 500 mls @ 333.333 mls/hr IV .Q1H30M PRN; Protocol PRN Reason: Bleeding Control Stop: 12/27/19 13:46 Last Titration: 11/27/19 15:55 Dose: Infused Documented by: Ibuprofen (Motrin) 600 mg PO Q4H PRN PRN Reason: Pain/PEDERSON/Cramping/Fever Stop: 12/27/19 13:46 Last Admin: 11/28/19 03:05 Dose: 600 mg Documented by: Labetalol HCl (Normodyne) 200 mg PO TID [facility] Stop: 12/27/19 08:59 Last Admin: 11/27/19 20:05 Dose: 200 mg Documented by: Prenat Multivit/[employer]/Iron/Folic Ac ( Vitamin) 1 tab PO DAILY@08 [facility] Stop: 12/28/19 07:59 <Mimi Lopez MD, FACOG - Last Filed: 11/28/19 08:22> Co-Signing Physician Notes Resident Physician Supervision Note: I was present with Dr. Angulo during the history and exam. I discussed the case with the resident and agree with the findings and plan as documented in the note. Any exceptions or clarifications are listed here: doing well. routine pp care. ff 2 down nt, nt calves. spouse improving from flu. ppd #1. bps noted, on her chronic bp meds. Documented By: Mimi Lopez MD, FACOG Resident Activity Tracking <Ronaldo Angulo MD - Last Filed: 11/28/19 07:39> Resident Involvement: Resident Care Provided Care Provided: OB Delivery
[2019-11-28] MEDS: LABETALOL HCL 200 MG TAB PO SCH ×3 (09:20→20:46)
[2019-11-28] MEDS: DOCUSATE SODIUM 100 MG CAP PO SCH ×2 (09:20→20:46)
[2019-11-28] MEDS: PRENATAL VITAMIN 1 TAB PO SCH (09:20)
[2019-11-29] MEDS: IBUPROFEN 600 MG TAB PO PRN ×2 (00:20→10:38)
--- NOTE | 2019-11-29 05:52 | Obstetrical Progress Note ---
Date of Service <Ronaldo Angulo MD - Last Filed: 11/29/19 06:16> November 29, 2019 Assessment & Plan <Ronaldo Angulo MD - Last Filed: 11/29/19 06:16> (1) Encounter for induction of labor: PPD#2 - continue routine care - encourage ambulation and oral intake - after discharge will have follow-up in [address] John Chun <Ronaldo Angulo MD - Last Filed: 11/29/19 06:16> Ms. Harris is a 34 y/o female ; PPD #2 following spontaneous vaginal delivery at 38 weeks; doing well this morning; having minimal abdominal cramping/pain; voiding well; tolerating meals overnight; and able to ambulate some; some persistent spotting with intermittent improvement this morning. Review of Systems Constitutional: denies fever; chills; sweats; headache Respiratory: denies shortness of breath, difficulty breathing Cardiac: denies chest pain; palpitations; chest pressure Breast: denies breast pain : denies dysuria Physical Exam <Ronaldo Angulo MD - Last Filed: 11/29/19 06:16> General: alert; oriented; no acute distress Cardiac: RRR; no m/g/r Respiratory: CTAB a/p; no wheezes/rales/rhonchi; no increased work of breathing; symmetrical chest rise; no respiratory distress Abdomen: soft; NT/ND; bowel sounds positive Uterus: uterine fundus firm; palpable 3cm below umbilicus Lower extrem: no lower extremity edema or swelling; no deep calf pain; Arias's sign negative b/l Results & Data <Ronaldo Angulo MD - Last Filed: 11/29/19 06:16> Vital Signs (Past 12 Hours) Vital Signs Temp Pulse Resp BP BP Pulse Ox 11/29/19 02:45 151/90 H 150/92 H 11/28/19 22:45 36.5 C 78 18 153/96 H 150/92 H 98 11/28/19 20:20 36.7 C 78 16 147/98 H 98 Medications Administered Current Inpatient Medications Acetaminophen (Tylenol) 650 mg PO Q6H PRN PRN Reason: Pain/PEDERSON/Fever Stop: 12/27/19 13:46 Benzocaine (Dermoplast Pain Relieving [place]) 1 appln EXT PRN PRN PRN Reason: Perineal Discomfort Stop: 12/27/19 13:46 Last Admin: 11/27/19 15:17 Dose: 1 appln Documented by: Cocaine HCl (Supercream 0.870%) 1 gm EXT BID PRN PRN Reason: Hemorrhoidal Inflammation Stop: 12/11/19 13:46 Docusate Sodium (Colace) 100 mg PO DAILY@08,21 [facility] Stop: 12/27/19 20:59 Last Admin: 11/28/19 20:46 Dose: 100 mg Documented by: Hydrocortisone (Anusol Hc) 25 mg [place] BID PRN PRN Reason: Hemorrhoidal Inflammation Stop: 12/27/19 13:46 Oxytocin (Pitocin) 30 units in 500 mls @ 333.333 mls/hr IV .Q1H30M PRN; Protocol PRN Reason: Bleeding Control Stop: 12/27/19 13:46 Last Titration: 11/27/19 15:55 Dose: Infused Documented by: Ibuprofen (Motrin) 600 mg PO Q4H PRN PRN Reason: Pain/PEDERSON/Cramping/Fever Stop: 12/27/19 13:46 Last Admin: 11/29/19 00:20 Dose: 600 mg Documented by: Labetalol HCl (Normodyne) 200 mg PO TID [facility] Stop: 12/27/19 08:59 Last Admin: 11/28/19 20:46 Dose: 200 mg Documented by: Prenat Multivit/[place]/Iron/Folic Ac ( Vitamin) 1 tab PO DAILY@08 [facility] Stop: 12/28/19 07:59 Last Admin: 11/28/19 09:20 Dose: 1 tab Documented by: <Lili Williamson MD - Last Filed: 11/29/19 07:10> Co-Signing Physician Notes I have reviewed the resident's note and examined the patient myself, and agree with the note above. Anisha will be seeing her PCP in the next few weeks (prior to her 6wk pp check) to check HTN meds and ensure correct dose. She is at her own baseline for BP at this time and has no s/sx PreE. Routine PP follow up in addition. Resident Activity Tracking <Ronaldo Angulo MD - Last Filed: 11/29/19 06:16> Resident Involvement: Resident Care Provided Care Provided: OB Delivery
[2019-11-29] MEDS: DOCUSATE SODIUM 100 MG CAP PO SCH (07:41)
[2019-11-29] MEDS: PRENATAL VITAMIN 1 TAB PO SCH (07:41)
[2019-11-29] MEDS: LABETALOL HCL 200 MG TAB PO SCH ×2 (07:42→13:22)
== END 2019-11-29 14:35 | disposition home or self-care (01) | DRG 807 ==
LOC: 4S1 07:34 → 4S2 17:10